=== PATIENT | female | born 1970 | race Caucasian/White ===

== ENCOUNTER 2023-11-18 09:30 | Day surgery (SDC) | payer OTHER ==
[~2023-11-18] VITALS: Ht 162.6 cm; Wt 77.1 kg
[2023-11-18] MEDS ORDERED: fentaNYL citrate 0.05 MG/ML VIAL ONE (11:19)
[2023-11-18] MEDS: LIDOCAINE 2% 1000 MG/50 ML VIAL INJ ONE (11:55)
[2023-11-18] MEDS ORDERED: MORPHINE SULFATE 2 MG/ML SYR IVP PRN (12:20)
[2023-11-18] MEDS ORDERED: MORPHINE SULFATE 2 MG/ML SYR ONE (12:38)
[2023-11-18] MEDS: MORPHINE SULFATE 2 MG/ML SYR IVP ONE (12:45)
== END 2023-11-18 14:10 | disposition home or self-care (01) ==
LOC: MDS 09:30 → MMU 10:19 → MDS 14:10
PROVIDERS: ATTEND Internal Medicine Gastroenterology
DX: K75.81 Nonalcoholic steatohepatitis (NASH) (principal); I10 Essential (primary) hypertension; J45.909 Unspecified asthma, uncomplicated; E78.5 Hyperlipidemia, unspecified; E11.9 Type 2 diabetes mellitus without complications; K58.9 Irritable bowel syndrome, unspecified; Z98.891 History of uterine scar from previous surgery; Z90.49 Acquired absence of other specified parts of digestive tract; Z79.899 Other long term (current) drug therapy; Z98.890 Other specified postprocedural states
CPT/HCPCS: 47000; 76942; 82948; J2001; J2270; Q0092; J3010

== ENCOUNTER 2024-01-17 06:36 | Day surgery (SDC) | payer OTHER ==
[~2024-01-17] VITALS: Ht 154.9 cm; Wt 72.6 kg
== END 2024-01-17 10:00 | disposition home or self-care (01) ==
LOC: MDS 06:36 → MMU 06:37 → MDS 10:00
PROVIDERS: ATTEND Internal Medicine Gastroenterology
DX: K75.81 Nonalcoholic steatohepatitis (NASH) (principal); E11.9 Type 2 diabetes mellitus without complications; E78.5 Hyperlipidemia, unspecified; Z98.891 History of uterine scar from previous surgery; Z79.899 Other long term (current) drug therapy; Z98.890 Other specified postprocedural states
CPT/HCPCS: 47000; 76942; Q0092